=== PATIENT | female | born 1975 | race Caucasian/White ===

== ENCOUNTER 2018-06-24 09:08 | Emergency (ER) | payer MEDICAID, SELFPAY ==
[2018-06-24 09:16] VITALS: BP 153/96; PULSE 78; RESP 16; TEMP 36.4; O2SAT 97
--- NOTE | 2018-06-24 09:16 | DI.REPORT_ITS ---
SYMPTOM/DIAGNOSIS: S/P FALL ON TO RIGHT HIP, H/O RT HIP REPLACEMENT, R/O ACUTE FX PELVIS AND RIGHT HIP: No acute fracture or dislocation is identified. Note is made of a right total hip replacement. The orthopaedic hardware appears in good position. The soft tissue are unremarkable. IMPRESSION: No acute fracture or dislocation.
--- NOTE | 2018-06-24 09:26 | ED.GENADUL_ITS ---
Disposition Clinical Impression: Contusion of right hip Disposition: HOME Condition: Stable Instructions: Contusion in Adults (ED) Additional Instructions: Rest, ice, elevate right lower extremity is much as possible. Alternate Tylenol and Motrin as needed and directed for pain. Follow-up with your primary care doctor within the next week as needed. Return to the emergency department with any worsening or new concerning symptoms. Forms: Work Release Medical Decision Making - Radiology Data Radiology results: report reviewed, image reviewed Right hip and pelvic x-ray: Negative - Medical Decision Making 42-year-old female with history of recent right hip replacement who presents with right hip pain status post fall onto right hip and parking lot yesterday. Admits to some pain in right hip but has been able to ambulate. 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 She took Motrin prior to arrival. She was able to ambulate back to the ED room in no acute distress. There is no obvious deformity or limitation of range of motion or pain or tenderness to palpation of right hip. Patient would like a right hip x-ray. Patient had history of tubal ligation and is denying and declining test 1040: Right hip x-ray negative. Patient is requesting work note for today to rest her right hip. Patient instructed to rest, ice, elevate and alternate Tylenol and Motrin. She was instructed to follow-up with the primary care doctor as needed and return here if worse. History of Present Illness - General Chief complaint: Orthopedic Stated complaint: HIP INJURY Time Seen by Provider: 06/24/18 09:16 Source: patient Mode of arrival: ambulatory Limitations: no limitations - History of Present Illness Initial comments: Patient is a 42-year-old female status post right hip replacement secondary to degenerative disease who presents for right hip pain after fall yesterday. Patient states she was walking in a parking lot when she slipped and fell onto her right hip. Patient has been ambulating since then but with pain. 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 Patient was able to ambulate back to the ER room in no acute distress. Took Motrin prior to arrival - Related Data Hydrocodone Bit/Acetaminophen [Hydrocodon-Acetaminophen 5-325] 1 each PO QID PRN PRN #15 tablet 01/22/17 Ibuprofen 800 mg PO PRN PRN 01/22/17 Allergies Allergy/AdvReac Type Severity Reaction Status Date / Time aspirin AdvReac Unknown GI Bleeding Unverified 01/22/17 08:30 Sulfa (Sulfonamide AdvReac Unknown Nausea Unverified 01/22/17 08:30 Antibiotics) Review of Systems Constitutional: denies: chills, fever Eyes: denies: eye pain ENT: denies: ear pain, dental pain Respiratory: denies: cough, shortness of breath Cardiovascular: denies: chest pain, dyspnea on exertion Gastrointestinal: denies: abdominal pain, nausea, vomiting Genitourinary: denies: urgency, dysuria, frequency Musculoskeletal: other (R hip pain). denies: back pain Skin: denies: rash, lesions Neurological: denies: headache, weakness, paresthesias Past Medical History - Past Medical History Medical history: diabetes Surgical history: cholecystectomy, bilateral tubal ligation, other (R hip replacement) - Social History Smoking status: former smoker Alcohol use: none Drug use: none General Exam - General Limitations: no limitations General appearance: alert, in no apparent distress - Eye Eye exam: Present: EOMI - Respiratory Respiratory exam: Present: normal lung sounds bilaterally. Absent: respiratory distress, wheezes, rales, rhonchi, stridor - Cardiovascular Cardiovascular Exam: Present: regular rate, normal rhythm. Absent: bradycardia , tachycardia - GI/Abdominal GI/Abdominal exam: Present: soft, normal bowel sounds. Absent: distended, tenderness, guarding, rebound, rigid - Extremities Exam Extremities exam: Present: other (Right hip normal to inspection. Full range of motion of right hip without pain or limitation. No right lower extremity shortening or external rotation. Right DP/PT pulse intact. ) - Neurological Exam Neurological exam: Present: alert, oriented X3 - Psychiatric Psychiatric exam: Present: normal affect - Skin Skin exam: Present: warm, dry, intact Course Vital Signs - 24 hr 06/24/18 09:16 Temperature 97.5 F L Pulse 78 Respiratory 16 Rate Blood Pressure 153/96 Pulse Oximetry 97
== END 2018-06-24 10:49 | disposition home or self-care (01) ==
LOC: ER 08-09 07:44
PROVIDERS: Emergency Provider Physician Assistant; PCP Family Medicine
DX: S70.01XA Contusion of right hip, initial encounter (principal); W18.30XA Fall on same level, unspecified, initial encounter; Z96.641 Presence of right artificial hip joint
CPT/HCPCS: 99283; 73502

== ENCOUNTER 2018-08-18 15:18 | Outpatient (REF) | payer MEDICAID, SELFPAY ==
[2018-08-18 21:29] LABS: COMMENT (LAB VIEW ONLY) 36.42 mg/dL; Microalb ug/mg Crea 4.9 ug/mg Cr
== END 2018-08-18 15:38 ==
LOC: NCHCN 15:18
PROVIDERS: PCP Family Medicine; Visit Provider Family Medicine
DX: E11.9 Type 2 diabetes mellitus without complications (principal)
CPT/HCPCS: 82043; 82570

== ENCOUNTER 2020-04-02 13:00 | Outpatient (REF) | payer MEDICAID, SELFPAY ==
[2020-04-02 21:02] LABS: BUN 14 mg/dL (7-18); CREATININE 0.88 mg/dL (0.55-1.02); Calcium 9.3 mg/dL (8.5-10.1); Chloride 101 mmol/L (98-107); Glucose 132 mg/dL (74-106); Potassium 4.5 mmol/L (3.5-5.1); Sodium 137 mmol/L (136-145)
[2020-04-02 21:13] LABS: COMMENT (LAB VIEW ONLY) 40.82 mg/dL; Microalb ug/mg Crea 17.4 ug/mg Cr
== END 2020-04-02 13:20 ==
LOC: NCHCN 13:00
PROVIDERS: PCP Family Medicine; Visit Provider Family Medicine
DX: E11.65 Type 2 diabetes mellitus with hyperglycemia (principal)
CPT/HCPCS: 80048; 82043; 82570

== ENCOUNTER 2020-06-12 13:28 | Outpatient (REF) | payer MEDICAID, SELFPAY ==
[2020-06-14 11:03] LABS: Mumps Antibody IgG Positive (See Note); Rubella IgG Ab (UVM) Positive (See Note)
[2020-06-14 23:56] LABS: Measles (Rubeola), IgM Negative (Negative)
== END 2020-06-12 13:48 ==
LOC: NCHCN 13:28
PROVIDERS: PCP Family Medicine; Visit Provider Family Medicine
DX: Z02.0 Encounter for examination for admission to educational institution (principal)
CPT/HCPCS: 86765; 86704; 86735; 86762

== ENCOUNTER 2021-06-11 02:17 | Outpatient (CLI) | payer MEDICAID, SELFPAY ==
--- NOTE | 2021-06-11 07:30 | DI.US_ITS ---
Exam(s) US SOFT TISS ABD WALL/LOW BACK EXAM: US SOFT TISS ABD WALL/LOW BACK CLINICAL HISTORY: Evaluate cyst-like lesion of mid-lT-back,L98.9. TECHNIQUE: Ultrasound was performed using standard protocol. COMPARISON: No exams were available for comparison FINDINGS: Sonographic assessment utilizing grayscale and color Doppler imaging was performed and targeted to th e area of clinical concern. This is on patient's back immediately subjacent scapula. There is a superficially located non-cystic oval nodule measuring 1 cm transverse by 0.7 cm. This is well-defined but contains internal echoes despite increased through transmission. It appears to be pr edominantly within the dermis. It does not have the appearance of a lipoma. It does exhibit some vasc ularity. Does not exhibit an obvious tract to the skin. IMPRESSION: Well defined 10 x 7 millimeter well-defined solid nodule corresponding to the patient's palpable find ing. This does not have the typical ultrasound appearance of a benign lipoma. DATA REPOSITORY:
== END 2021-06-11 02:37 ==
PROVIDERS: PCP Student in an Organized Health Care Education/Training Program; Visit Provider Student in an Organized Health Care Education/Training Program
DX: R22.2 Localized swelling, mass and lump, trunk (principal); L98.9 Disorder of the skin and subcutaneous tissue, unspecified
CPT/HCPCS: 76705

== ENCOUNTER 2021-06-24 03:44 | Outpatient (CLI) | payer MEDICAID, SELFPAY ==
[2021-06-24 07:24] LABS: HCT 38.8 % (36.0-46.0); HGB 12.7 g/dL (11.2-15.7); MCH 27.9 pg (27.0-33.0); MCHC 32.7 % (32.0-36.0); MCV 85.3 fL (80-95); MPV 10.7 fL (8.0-11.0); Platelet Count 282 10^3/uL (130-400); RBC 4.55 10^6/uL (3.93-5.22); RDW 12.8 % (11.7-14.6); RDW-SD 39.8 fL; WBC 6.89 10^3/uL (4.4-10.8)
[2021-06-24 07:46] LABS: Hemoglobin A1C 12.2 % (<5.7)
[2021-06-24 09:28] LABS: ALT 19 U/L (14-59); AST 11 U/L (15-37); Albumin 3.8 g/dL (3.4-5.0); Alkaline Phosphatase 66 U/L (46-116); Anion Gap 9.4 mmol/L (3-11); BUN 10 mg/dL (7-18); Bilirubin, Total 0.2 mg/dL (0.2-1.0); CO2 23.6 mmol/L (21.0-32.0); Calcium 8.9 mg/dL (8.5-10.1); Calculated LDL 144 mg/dL (<100); Chloride 99 mmol/L (98-107); Cholesterol 236 mg/dL (<200); Glucose 289 mg/dL (74-106); HDL Cholesterol 42 mg/dL (40-60); Potassium 4.2 mmol/L (3.5-5.1); Sodium 132 mmol/L (136-145); Total Protein 6.9 g/dL (6.4-8.2); Triglyceride 252 mg/dL (<150)
== END 2021-06-24 03:45 | disposition home or self-care (01) ==
LOC: LBO 03:44
PROVIDERS: PCP Student in an Organized Health Care Education/Training Program; Visit Provider Student in an Organized Health Care Education/Training Program
DX: R53.83 Other fatigue (principal); E11.65 Type 2 diabetes mellitus with hyperglycemia; Z86.2 Personal history of diseases of the blood and blood-forming organs and certain disorders involving the immune mechanism; Z13.220 Encounter for screening for lipoid disorders
CPT/HCPCS: 36415; 80053; 80061; 85027; 83036

== ENCOUNTER → 2022-01-14 15:10 | Outpatient (CLI) | payer MEDICAID, SELFPAY | PROVIDERS: PCP Student in an Organized Health Care Education/Training Program; Visit Provider Nurse Practitioner Family ==

== ENCOUNTER 2022-10-14 14:16 | Emergency (ER) | payer MEDICAID, SELFPAY ==
[2022-10-14 14:25] VITALS: BP 152/96; PULSE 106; RESP 15; TEMP 37.2; O2SAT 97
[2022-10-14 15:01] LABS: Abs Immature Grans 0.05 10^3/uL (0.0-0.06); Absolute Basophil Count 0.08 10^3/uL (0.0-0.2); Absolute Eosinophil Count 0.09 10^3/uL (0.0-0.7); Absolute Monocyte Count 0.64 10^3/uL (0.1-0.8); Absolute Neutrophil Count 5.96 10^3/uL (1.2-6.7); Basophils % 0.8; Eosinophils % 0.9; HGB 15.2 g/dL (11.2-15.7); Immature Grans % 0.5; Lymphocytes % 30.5; MCH 27.7 pg (27.0-33.0); MCV 84 fL (80-95); MPV 11.2 fL (8.0-11.0); Monocytes % 6.5; Neutrophils % 60.8; Platelet Count 309 10^3/uL (130-400); RBC 5.48 10^6/uL (3.93-5.22); RDW 13.3 % (11.7-14.6); RDW-SD 41.1 fL; WBC 9.82 10^3/uL (4.4-10.8)
[2022-10-14 15:02] LABS: Bilirubin Negative (Negative); Blood Negative (Negative); Clarity Clear (Clear); Glucose 500 mg/dL (Negative); Ketones 40 mg/dL (Negative); Leukocyte Esterase Negative (Negative); Nitrite Negative (Negative); Urobilinogen 0.2 EU/dL (Up TO 0.2)
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
[2022-10-14 15:15] LABS: ALT 14 U/L (14-59); AST 8 U/L (15-37); Alkaline Phosphatase 89 U/L (46-116); Anion Gap 9.9 mmol/L (3-11); BUN 6 mg/dL (7-18); Bilirubin, Total 0.4 mg/dL (0.2-1.0); CO2 22.1 mmol/L (21.0-32.0); CREATININE 0.8 mg/dL (0.55-1.02); Calcium 9.1 mg/dL (8.5-10.1); Chloride 100 mmol/L (98-107); Estimated GFR 92.54 (mL/min/1.73m2); Glucose 323 mg/dL (74-106); Lipase 113 U/L (73-393); Sodium 132 mmol/L (136-145); Total Protein 8.5 g/dL (6.4-8.2)
--- NOTE | 2022-10-14 15:15 | DI.CT_ITS ---
Exam(s) CT ABDOMEN PELVIS W EXAM: CT ABDOMEN PELVIS W CLINICAL HISTORY: RLQ pain. TECHNIQUE: Imaging Protocol: Axial computed tomography images with coronal and sagittal reformatted images were created and reviewed CONTRAST MATERIAL: Intravenous: Omnipaque 100cc Oral: None COMPARISON: CR RT HIP COMPLETE AP PELVIS from 06/24/2018 FINDINGS: VISUALIZED LUNG BASES: No nodules nor pleural effusions evident. ABDOMEN: There is no ascites. LIVER: There is a solitary lesion in the liver which is in the right hepatic lobe and measures 1.9 x 1.5 cm. This is too dense to be a simple cyst. Either represents some angioma or more concerning pa thology. No other focal hepatic findings. GALLBLADDER/BILIARY: Gallbladder surgically absent. CBD is not dilated. PANCREAS: No evidence of pancreatic mass nor dilatation of the pancreatic duct. SPLEEN: Spleen is not enlarged. No obvious intrasplenic lesions. Splenic and portal veins are paten t. ADRENALS: There are no significant adrenal masses. KIDNEYS:No cysts evident. No solid renal masses. No calculi nor hydronephrosis.. ABDOMINAL AORTA: Abdominal aorta is not enlarged. LYMPH NODES:There is no retroperitoneal nor paraaortic adenopathy. ABDOMINAL WALL: No evidence of significant anterior abdominal wall nor inguinal hernia. GI: No bowel obstruction. PELVIS: GI: There is abnormal streaking around the lateral aspect of the cecum which appears to have its epic enter at a small 3 millimeter mural density at this level which is possibly a small diverticulum. Th ere is abundant fat streaking lateral to this region. Ileocecal valve itself is unremarkable as is t he terminal ileum. The appendix is not dilated and contains air. No appendicular lith evident.There is no abnormality above this level in the colon. There is no evidence of sigmoid diverticular disea se. LYMPH NODES: There is no intrapelvic nor inguinal adenopathy. REPRODUCTIVE: Uterus size normal. Corpus luteal cyst evident in the right ovary measuring 2 x 1.5 cm . Left ovary unremarkable. URINARY BLADDER: No calculi nor obvious masses evident OSSEOUS: Right hip prosthesis evident. 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 There is no ankylosis of the SI joint s. IMPRESSION: 1. There is prominent inflammatory change in the fat around the lateral aspect of the cecum which jennifer ears to have its epicenter at a focal small mural based hyperdensity in the lateral wall of the cecum opposite the ileocecal valve. Possibly a small diverticulum at this level although there are no oth er diverticuli seen elsewhere in the colon. The terminal ileum appears unremarkable and the appendix , although adjacent to this abnormality, appears itself unremarkable and not the true epicenter of pa thology here. Surgical consultation recommended.. 2. No evidence of significant sigmoid diverticular disease. 3. Corpus luteum cyst noted in the right ovary. This measures 1.6 x 1.5 cm. No other adnexal findin gs. Uterus appears age-appropriate. 4. There is a 1.9 x 1.5 cm lesion in the right hepatic lobe which is too dense to be a simple cyst an d either represents a cavernous hemangioma or other more concerning pathology including neoplasm (pos sibly metastatic) or abscess. This can be further study with hemangioma protocol contrast infused MR I. 5. Right hip prosthesis. 6. Osteitis condensans ilii incidentally noted. Called by myself to ER provider. RADIATION DOSE DELIVERED: 1,254.18mGy.cm Total DLP DATA REPOSITORY: All CT scans at this facility are submitted to the National Radiology Data Registry (NRDR) Dose Index Registry (DIR) with the [employer] ([employer]). RADIATION OPTIMIZATION: All CT scans at this facility use at least one of these dose optimization te chniques: automated exposure control; mA and/or kV adjustment per patient size (includes targeted exa ms where dose is matched to clinical indication); or iterative reconstruction.
[2022-10-14] MEDS: Normal Saline 1,000 ML 1000 ML IV (15:17)
[2022-10-14 15:35] LABS: Source Nasal/Nares
[2022-10-14] MEDS: Normal Saline - Diluent 50 ML VIAL IJ (15:49)
[2022-10-14] MEDS: Normal Saline Flush 10 ML SYR IVP (15:50)
[2022-10-14] MEDS: Omnipaque 350 MG/ML 100 ML BTL IJ (15:50)
[2022-10-14 16:13] LABS: COVID-19 PCR Negative (Negative)
[2022-10-14 16:43] VITALS: BP 117/54; PULSE 90; RESP 18; TEMP 37.7; O2SAT 97
[2022-10-14] MEDS: Ondansetron O.D.T. 4 MG TABEF, 3 TABS/BTL PO (16:56)
[2022-10-14] MEDS: Ciprofloxacin 500 MG TAB PO (16:57)
[2022-10-14] MEDS: metroNIDAZOLE 500 MG TAB PO (16:58)
== END 2022-10-14 17:05 | disposition home or self-care (01) ==
PROVIDERS: Physician Assistant; Emergency Provider Physician Assistant; PCP Student in an Organized Health Care Education/Training Program
DX: K57.32 Diverticulitis of large intestine without perforation or abscess without bleeding (principal); E11.65 Type 2 diabetes mellitus with hyperglycemia; K76.89 Other specified diseases of liver; Z20.822 Contact with and (suspected) exposure to COVID-19
CPT/HCPCS: 80053; 81025; 83690; 87635; 96360; 99285; 74177; 81003; 85025; 99284; J3490

== ENCOUNTER 2023-05-12 17:31 | Emergency (ER) | payer MEDICAID, SELFPAY ==
[2023-05-12 17:36] VITALS: BP 176/117; PULSE 90; RESP 16; TEMP 36.4; O2SAT 98
--- NOTE | 2023-05-12 19:44 | ED.GENADUL_ITS ---
Discharge Plan Disposition Patient Disposition: Home Condition: Stable Discharge Details Clinical Impression: Left leg pain Primary Care Provider: Renetta Penaloza ED Provider: Elvie Conway Home Meds and New Rx's Prescriptions: New gabapentin 300 mg capsule 300 mg PO QHS 14 Days Qty: 14 0RF Rx Instructions: Take 1 capsule by mouth before bed. No Action metformin 500 mg Tablet 500 mg PO BID omeprazole 20 mg Capsule,Delayed Release(Dr/Ec) 20 mg PO DAILY insulin glargine [Lantus Solostar U-100 Insulin] 100 unit/mL (3 mL) Insulin Pen 10 unit SUBCUT QPM Victoza 2-Ge 0.6 mg/0.1 mL (18 mg/3 mL) Pen Injector 1.8 mg SUBCUT DAILY Discharge Instructions Instructions: Peripheral Neuropathy (ED), Leg Pain (ED) Additional Instructions: Take the gabapentin at night before bed as prescribed. Follow-up with primary care provider for further care and dosing if needed. This may make you sleepy no driving or operating heavy machinery. Follow up with primary care provider in 3-5 days. Return to ED sooner if any worsening or concerns. Increase oral fluids. Referrals: Renetta Penaloza DO [Primary Care Provider] - 5 days Medical Decision Making 47-year-old female presents to the ER with chief complaint of left thigh pain which has been ongoing for a week. She reports it starts at her hip and groin area and radiates down to her knee. Denies back pain no loss of bowel or bladder control no falls. She does have a history of diabetes she describes nerve type pain. Describes a sharp shooting with inrh-[id number] and skin sensitivity. No rash swelling or erythema noted. No signs of injury. She denies any problems urinating or any other associated symptoms. Gabapentin ordered. We will give a prescription and follow-up with PCP. This text was generated using [employer] system, please disregard any oddities of phrase or misspellings. HPI General Mode of arrival: ambulatory . Date/Time Provider Initiated Documentation: 05/12/23 17:51 . Limitations to Documentation: no limitations . Information obtained by: patient, RN notes reviewed and old records reviewed . HPI Narrative: 47-year-old female presents to the ER with chief complaint of left thigh pain which has been ongoing for a week. She reports it starts at her hip and groin area and radiates down to her knee. Denies back pain no loss of bowel or bladder control no falls. She does have a history of diabetes she describes nerve type pain. Describes a sharp shooting with [id number] and skin sensitivity. No rash swelling or erythema noted. No signs of injury. She denies any problems urinating or any other associated symptoms. Related Data Home Medications Medication Instructions Recorded Confirmed gabapentin 300 mg capsule 300 mg PO QHS Pain 2 weeks #14 caps 05/12/23 insulin glargine 100 unit/mL (3 10 unit subcut QPM 05/12/23 05/12/23 mL) subcutaneous pen (Lantus Solostar U-100 Insulin) liraglutide 0.6 mg/0.1 mL (18 mg/3 1.8 mg subcut DAILY 05/12/23 05/12/23 mL) subcutaneous pen injector (Victoza 2-Ge) metformin 500 mg tablet 500 mg PO BID 05/12/23 05/12/23 omeprazole 20 mg capsule,delayed 20 mg PO DAILY 05/12/23 05/12/23 release Previous Rx's Medication Instructions Recorded gabapentin 300 mg capsule 300 mg PO QHS Pain 2 weeks #14 caps 05/12/23 Allergies Allergy/AdvReac Type Severity Reaction Status Date / Time Sulfa (Sulfonamide AdvReac Intermediate Other (See Unverified 05/12/23 17:40 Antibiotics) Comment) aspirin AdvReac Mild Other (See Unverified 05/12/23 17:40 Comment) General Stated Complaint: Orthopedic CLAUDIA: 4 Review of Systems All systems reviewed & are unremarkable except as noted in HPI and below Musculoskeletal Musculoskeletal: Reports as per HPI, Denies back pain, Denies numbness, Reports radiating pain into limb and Reports tingling Neurologic Neurologic: Denies numbness and Reports tingling PFSH All Active Problems (Updated 05/12/23 @ 19:50 by Elvie Conway NP) Left leg pain (Acute) Social History Smoking/Tobacco Use Status: Never Smoking risk assessment performed?: Yes Substance use type: marijuana Do you feel safe at home: Yes Do you feel safe in your relationship?: Yes Exam Narrative Exam Narrative: Constitutional: Alert and oriented x3. Appears stated age. Normal body habitus. Head: Normocephalic, no trauma. Eyes: Pupils PERRL, Red reflex noted, EOM's intact. Eyelids symmetrical without lesions, discharge, or swelling. ENT: Bilateral TM's WNL, External ear normal to inspection, no mastoid TTP, swelling, or erythema, Nasal turbinates WNL, no nasal discharge. Normal dentition, Posterior pharynx WNL, no exudate. Chest: RRR, Normal S1, S2, distal pulses intact. Resp: Lungs clear to auscultation bilaterally, no wheezes, rales, or rhonchi. Abdomen: Soft, non-distended, Normoactive bowel sounds all 4 quads. Musculoskeletal: Normal gait, 5/5 strength to all four extremities. Skin: No suspicious rashes or lesions. Capillary refill less than 2 sec. Neurologic: Cranial nerves II-XII intact. Alert and oriented x 3. Motor: No deficits noted. Sensory: Intact bilaterally all 4 extremities. Reflexes: DTR's intact bilaterally.. Hematologic/Lymphatic: No ecchymosis, no lymphadenopathy. Course Vital Signs Vital signs: Vital Signs Temperature 36.4 C L 05/12/23 17:36 Pulse 90 05/12/23 17:36 Respiratory Rate 16 05/12/23 17:36 Blood Pressure 176/117 H 05/12/23 17:36 Pulse Oximetry 98 05/12/23 17:36 Temperature 36.4 C L 05/12/23 17:36 Temperature Source Skin 05/12/23 17:36 Pulse 90 05/12/23 17:36 Respiratory Rate 16 05/12/23 17:36 Respiratory Effort Normal, Non-Labored 05/12/23 19:31 Blood Pressure 176/117 H 05/12/23 17:36 Blood Pressure Position Sitting 05/12/23 17:36 Pulse Oximetry 98 05/12/23 17:36 Oxygen Delivery Method Room Air 05/12/23 17:36 Oxygen Flow Rate 0 05/12/23 17:36 Pain Level 8 05/12/23 17:36
[2023-05-12] MEDS: Gabapentin 300 MG CAP PO (19:51)
== END 2023-05-12 20:56 | disposition home or self-care (01) ==
PROVIDERS: Emergency Provider Registered Nurse Emergency; PCP Student in an Organized Health Care Education/Training Program
DX: M79.605 Pain in left leg (principal); M25.552 Pain in left hip
CPT/HCPCS: 99283; 99284

== ENCOUNTER 2025-04-25 09:52 | Outpatient (REF) | payer MEDICAID, SELFPAY ==
[2025-04-25 16:47] LABS: COMMENT (LAB VIEW ONLY) 41.79 mg/dL; Microalb ug/mg Crea 13.4 ug/mg Cr
== END 2025-04-25 09:53 | disposition home or self-care (01) ==
LOC: LBN 09:52
PROVIDERS: PCP Nurse Practitioner Family; Visit Provider Nurse Practitioner Family
DX: E11.65 Type 2 diabetes mellitus with hyperglycemia (principal)
CPT/HCPCS: 82043; 82570

== ENCOUNTER 2025-05-04 01:03 | Outpatient (CLI) | payer MEDICAID, SELFPAY ==
[2025-05-04 09:32] LABS: Anion Gap 10.3 mmol/L (3-11); BUN 12 mg/dL (7-18); CO2 25.7 mmol/L (21.0-32.0); CREATININE 0.9 mg/dL (0.55-1.02); Calcium 9.1 mg/dL (8.5-10.1); Calculated LDL 185 mg/dL (<100); Chloride 101 mmol/L (98-107); Cholesterol 263 mg/dL (<200); Estimated GFR 79.35 (mL/min/1.73m2); Glucose 330 mg/dL (74-106); HDL Cholesterol 42 mg/dL (>or=50); Potassium 4.1 mmol/L (3.5-5.1); Sodium 137 mmol/L (136-145); Triglyceride 180 mg/dL (<150)
[2025-05-04 17:00] LABS: Hemoglobin A1C > 13.0 % (<5.7)
== END 2025-05-04 01:04 | disposition home or self-care (01) ==
LOC: LBO 01:03
PROVIDERS: PCP Nurse Practitioner Family; Visit Provider Nurse Practitioner Family
DX: Z00.00 Encounter for general adult medical examination without abnormal findings (principal); I10 Essential (primary) hypertension; E11.65 Type 2 diabetes mellitus with hyperglycemia
CPT/HCPCS: 36415; 80048; 80061; 83036

== ENCOUNTER 2025-06-01 09:33 | Outpatient (CLI) | payer MEDICAID, SELFPAY ==
--- NOTE | 2025-06-01 09:30 | RT.EKG_ITS ---
APPROVED REPORT Exam: Resting ECG Reason for Exam: diabetes Patient Location: O HR:63 bpm ECG Measurements Heart Rate 63 AXIS DC 167 P 40 QRSd 100 QRS 0 QT 406 T 36 QTc 416 Conclusion Sinus rhythm...normal P axis, V-rate 50- 99 Low voltage, precordial leads...precordial leads <1.0mV Poor R wave progression
== END 2025-06-01 09:34 | disposition home or self-care (01) ==
LOC: DI.KIM 09:34
PROVIDERS: PCP Nurse Practitioner Family; Visit Provider Nurse Practitioner Family
DX: E78.5 Hyperlipidemia, unspecified (principal); E11.65 Type 2 diabetes mellitus with hyperglycemia
CPT/HCPCS: 93010

== ENCOUNTER 2025-08-10 04:04 | Outpatient (CLI) | payer MEDICAID, SELFPAY ==
[2025-08-10 08:53] LABS: Hemoglobin A1C 7.7 % (<5.7)
[2025-08-10 09:22] LABS: ALT 16 U/L (14-59); AST < 5 U/L (15-37); Creatine Kinase 44 U/L (26-192)
[2025-08-10 09:47] LABS: Calculated LDL 201 mg/dL (<100); Cholesterol 291 mg/dL (<200); HDL Cholesterol 43 mg/dL (>or=50); Triglyceride 235 mg/dL (<150)
[2025-08-10 12:33] LABS: HCT 44.5 % (36.0-46.0); HGB 15.0 g/dL (11.2-15.7); MCH 30.0 pg (27.0-33.0); MCHC 33.7 % (32.0-36.0); MCV 89 fL (80-95); MPV 10.9 fL (8.0-11.0); Platelet Count 286 10^3/uL (130-400); RBC 5.00 10^6/uL (3.93-5.22); RDW 12.4 % (11.7-14.6); RDW-SD 40.6 fL; WBC 10.86 10^3/uL (4.4-10.8)
[2025-08-10 12:41] LABS: Iron 69 ug/dL (50-170)
[2025-08-10 12:54] LABS: Ferritin 57 ng/mL (8-252); TSH 1.75 uIU/mL (0.36-3.74)
== END 2025-08-10 04:05 | disposition home or self-care (01) ==
LOC: LBO 04:04
PROVIDERS: PCP Nurse Practitioner Family; Visit Provider Nurse Practitioner Family
DX: E78.5 Hyperlipidemia, unspecified (principal); E11.65 Type 2 diabetes mellitus with hyperglycemia; R23.2 Flushing; Z86.2 Personal history of diseases of the blood and blood-forming organs and certain disorders involving the immune mechanism
CPT/HCPCS: 36415; 80061; 82550; 85027; 82728; 83036; 83540; 84443; 84450; 84460